=== PATIENT | male | born 2000 | race Two or more races ===

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

== ENCOUNTER 2025-07-31 13:38 | Emergency (ER) | payer SELFPAY ==
[~2025-07-31] VITALS: Ht 195.6 cm; Wt 55.0 kg
--- NOTE | 2025-07-31 13:53 | ECG ---
[facility] Test Date: 2025-07-31 Test Time: 13:46:04 Pat Name: TONI REBOLLEDO Department: Room: Gender: M Writer Technical Publications: ARABELLA : 2000 Requested By: JOSIAH KUMARI Order Number: [id number] Reading MD: Terry Schaffer Measurements Intervals Ramsay Rate: 56 P: 68 MD: 108 QRS: 87 QRSD: 96 T: 64 QT: 418 QTc: 404 Interpretive Statements Sinus rhythm Short MD interval ST elev, probable normal early repol pattern Baseline wander in lead(s) V4 Electronically Signed On 08-01-2025 13:55:46 PST by Terry Schaffer Please click the below link to view image of tracing.
--- NOTE | 2025-07-31 14:45 | DVH ---
CHEST RADIOGRAPH Indication: sob Technique: Single frontal view of the chest was obtained Comparison: XR CHEST 1 VIEW on DOS: 07/27/25 FINDINGS: Lines and Tubes: None Lungs: No focal consolidation. Pleura: No effusion. No pneumothorax. Cardiomediastinal contours: Unremarkable Bones: No acute osseous abnormality. IMPRESSION: 1. No acute cardiopulmonary disease.
[2025-07-31 14:56] LABS: Hematocrit 46.9 % (41.0-53.0); Hemoglobin 16.5 g/dL (13.5-17.5); Mean Corpuscular Hemoglobin 32.2 pg (28.0-32.0); Mean Corpuscular Volume 91.9 fL (80.0-100.0); Nucleated Red Blood Cells % 0.1 %
[2025-07-31 14:59] LABS: Chloride 103 mmol/L (98-107); Potassium 4.2 mmol/L (3.5-5.1); Sodium 144 mmol/L (136-145)
[2025-07-31 15:00] LABS: Anion Gap 10 (5-15); Carbon Dioxide 31 mmol/L (20-31)
[2025-07-31 15:01] LABS: Calcium 9.8 mg/dL (8.7-10.4)
[2025-07-31 15:06] LABS: BUN/Creatinine Ratio 15.8 (10.0-20.0); Blood Urea Nitrogen 18 mg/dL (9-23)
[2025-07-31 15:09] LABS: Glucose 72 mg/dL (74-106)
--- NOTE | 2025-07-31 16:13 | ED.PDOC ---
SOB-HPI HPI Comments 25 year old male presents to the ED with a chief complaint of shortness of breath onset 4 days. Patient states he has been experiencing shortness of breath as well as palpitations, chest discomfort, described as a burning sensation for the past 4 days. This morning he noticed symptoms worsened, was also experiencing dizziness, confusion, came to ED. He states he quit smoking about 2 weeks ago, currently feels anxious. Denies fever, chills, cough, cold, congestion, headache, nausea, vomiting, diarrhea, dysuria, hematuria, sore throat. No other symptoms or modifying factors present at this time. Chief Complaint: Shortness of Breath Time Seen by MD: 15:40 Primary Care Provider: [facility] Reviewed notes: Medications, Allergies Information Source: Patient Mode of Arrival: Ambulatory Severity: Moderate Timing: Days Duration: Since onset Context: At Rest PE Risk Factors: None History of: None Prehospital treatment: None Modifying Factors: Nothing Quality: Burning Radiation: No Radiation Location: Substernal Past Medical History PAST MEDICAL HISTORY: Denies Surgical History: Denies all surgeries Family History Family History: Reviewed,noncontributory to illness, No family hx of Cancer, No family hx of DM, No family hx of Heart mariza, No family hx of HTN, No family hx ofKidney mariza, No family hx of Liver mariza, No family hx of Lung mariza, No family hx of Stroke Social History Alcohol: Denies ETOH Use Lives In: Home Constitutional: denies: chills, diaphoresis, fatigue, fever, malaise, sweats, weakness, others EENTM: denies: blurred vision, double vision, ear bleeding, ear discharge, ear drainage, ear pain, ear ringing, eye pain, eye redness, hearing loss, mouth pain, mouth swelling, nasal discharge, nose bleeding, nose congestion, nose pain, photophobia, tearing, throat pain, throat swelling, voice changes, others Respiratory: reports: shortness of breath; denies: cough, hemoptysis, orthopnea, SOB at rest, SOB with excertion, stridor, wheezing, others Cardiovascular: reports: chest pain, palpitations; denies: dizzy spells, diaphoresis, Dyspnea on exertion, edema, irregular heart beat, left arm pain, lightheadedness, PND, syncope, others Gastrointestinal: denies: abdomen distended, abdominal pain, blood streaked bowels, constipated, diarrhea, dysphagia, difficulty swallowing, hematemesis, melena, nausea, poor appetite, poor fluid intake, rectal bleeding, rectal pain, vomiting, others Genitourinary: denies: burning, dysuria, flank pain, frequency, hematuria, incontinence, penile discharge, penile sore, pain, testicle pain, testicle swelling, urgency, others Neurological: denies: dizziness, fainting, headache, left sided numbness, left sided weakness, numbness, paresthesia, pre-existing deficit, right sided numbness, right sided weakness, seizure, speech problems, tingling, tremors, w eakness, others Musculoskeletal: denies: back pain, gout, joint pain, joint swelling, muscle pain, muscle stiffness, neck pain, others Integumetry: denies: bruises, change in color, change in hair/nails, dryness, laceration, lesions, lumps, rash, wounds, others Allergic/Immunocompromised: denies: Difficulty Healing, Frequent Infections, Hives, Itching, others Hematologic/Lymphatic: denies: anemia, blood clots, easy bleeding, easy bruising, swollen glands, others Endocrine: denies: excessive hunger, excessive sweating, excessive thirst, excessive urination, flushing, intolerance to cold, intolerance to heat, unexplained weight gain, unexplained weight loss, others Psychiatric: reports: anxiety; denies: bipolar disorder, depression, hopeless, panic disorder, schizophrenia, sleepless, suicidal, others All Other Systems: Reviewed and Negative Physical Exam General Appearance: Normal HEENT: Normal ENT Inspection, Pharynx Normal, TMs Normal Neck: Full Range of Motion, Non-Tender, Normal, Normal Inspection Respiratory: Chest Non-Tender, Lungs Clear, No Accessory Muscle Use, No Respiratory Distress, Normal Breath Sounds Cardiovascular: No Edema, No JVD, No Murmur, No Gallop, Normal Peripheral Pulses, Regular Rate/Rhythm Breast Exam: Deferred Gastrointestinal: No Organomegaly, Non Tender, No Pulsatile Mass, Normal Bowel Sounds, Soft Genitalia: Deferred Pelvic: Deferred Rectal: Deferred Extremities: No calf tenderness, Normal capillary refill, Normal inspection, Normal range of motion, Non-tender, No pedal edema Musculoskeletal : Apperance: Normal Neurologic: Alert, bench assembler electrical II-XII nml as Tested, No Motor Deficits, Normal Affect, Normal Mood, No Sensory Deficits Cerebellar Function: Normal Reflexes: Normal Skin: Dry, Normal Color, Warm Lymphatic: No Adenopathy EKG EKG : Pulse Rate (adult): 56 Cardiac Rhythm: NSR Was a procedure done? Was a procedure done?: No Differential Dx Differential Diagnosis: Asthma, Bronchitis, COPD, Panic Attack, Pneumonia X-Ray, Labs, Meds, VS Vital Signs Date Time Temp Pulse Resp B/P (MAP) Pulse Ox O2 Delivery O2 Flow Rate FiO2 07/31/25 16:13 56 07/31/25 15:32 61 18 120/85 (97) 61 07/31/25 13:46 56 07/31/25 13:43 97.9 66 18 124/85 98 97.9 Lab Test 07/31/25 15:20 07/31/25 14:26 Range/Units Troponin I High Sensitivity < 3 L < 3 L </=54 ng/L White Blood Count 4.6 4.4-10.8 10^3/uL Red Blood Count 5.11 4.5-5.90 10^6/uL Hemoglobin 16.5 13.5-17.5 g/dL Hematocrit 46.9 41.0-53.0 % Mean Corpuscular Volume 91.9 80.0-100.0 fL Mean Corpuscular Hemoglobin 32.2 H 28.0-32.0 pg Mean Corpuscular Hemoglobin Concent 35.1 32.0-36.0 g/dL Red Cell Distribution Width 12.8 11.8-14.3 % Platelet Count 245 140-450 10^3/uL Mean Platelet Volume 9.5 6.9-10.8 fL Neutrophils (%) (Auto) 51.6 37.0-80.0 % Lymphocytes (%) (Auto) 37.6 10.0-50.0 % Monocytes (%) (Auto) 9.3 0.0-12.0 % Eosinophils (%) (Auto) 1.1 0.0-7.0 % Basophils (%) (Auto) 0.4 0.0-2.0 % Neutrophils # (Auto) 2.4 1.6-8.6 10 ^3/uL Lymphocytes # (Auto) 1.7 0.4-5.4 10 ^3/uL Monocytes # (Auto) 0.4 0-1.3 10 ^3/uL Eosinophils # (Auto) 0.1 0-0.8 10 ^3/uL Basophils # (Auto) 0 0-0.2 10 ^3/uL Nucleated Red Blood Cells 0.1 % Sodium Level 144 136-145 mmol/L Potassium Level 4.2 3.5-5.1 mmol/L Chloride Level 103 98-107 mmol/L Carbon Dioxide Level 31 20-31 mmol/L Anion Gap 10 5-15 Blood Urea Nitrogen 18 9-23 mg/dL Creatinine 1.14 0.700-1.30 mg/dL Glomerular Filtration Rate Calc 92 >90 mL/min BUN/Creatinine Ratio 15.8 10.0-20.0 Serum Glucose 72 L 74-106 mg/dL Calcium Level 9.8 8.7-10.4 mg/dL Time of 1ST Reevaluation: 16:10 Reevaluation 1ST: Unchanged Patient Education/Counseling: Diagnosis, Treatment, Prognosis Family Education/Counseling: No Family Present SEPSIS Sepsis Screen Date sepsis recognized/suspect: Jul 31, 2025 Time Sepsis recognized/suspect: 1344 Recent Procedure: No On Antibiotic Therapy: No Respiratory Rate >20: No Heart Rate >90: No Temp<36 C (96.8 F) or >38.3 C: No SBP <90 or MAP <65 mmHG: No New Acute Mental Status Change: No Is the patient on CPAP, BIPAP,: No Physician Orders Chest Portable (07/31/25 14:10) Troponin-I Hs (07/31/25 17:10) Electrocardigram (07/31/25 15:10) Electrocardigram (07/31/25 17:10) Alum & Mag Hydrox-Simethicone (Maalox Pl (07/31/25 16:45) Dicyclomine Capsule (Bentyl Capsule) (07/31/25 16:45) Acetaminophen Tablet (Tylenol Tablet) (07/31/25 16:45) Vital Signs Date Time Temp Pulse Resp B/P (MAP) Pulse Ox O2 Delivery O2 Flow Rate FiO2 07/31/25 16:13 56 07/31/25 15:32 61 18 120/85 (97) 61 07/31/25 13:46 56 07/31/25 13:43 97.9 66 18 124/85 98 97.9 Laboratory Tests Test 07/31/25 14:26 White Blood Count 4.6 10^3/uL (4.4-10.8) Departure 1 Departure Time of Disposition: 16:48 (Patient's workup is benign. Patient likely with viral syndrome. We will discharge patient home with outpatient follow up) Impression: Primary Impression: Acute viral syndrome Disposition: HOME / SELF CARE / HOMELESS Condition: Stable Additional Instructions: You presented today with chest pain. Your workup today was benign including labs, troponin, EKG, chest x-ray. Your pain may be from musculoskeletal strain, acid reflux, anxiety, or many other factors. You likely have a viral illness. It is important to stay well rested and well hydrated. You can take Tylenol and Motrin as needed for pain and fever. For a sore throat you can drink warm tea with honey. You can take [id number] pseudoephedrine for nasal congestion. He should follow up with your regular doctor within 1 week to ensure you are doing better. If your symptoms worsen or you have any other concerns please return to the emergency room. Discharged With: Self Critical Care Note Critical Care Time?: No Stability Stability form required: No Heart Score Heart Score: Heart Score Response (Comments) Value History N/A 0 EKG N/A 0 Age N/A 0 Risk Factors N/A 0 Troponin N/A 0 Total 0 I personally scribed for JOSIAH KUMARI MD ([email or web address]) on 07/31/25 at 16:13. Electronically submitted by Iman Laboy ([email or web address]). JOSIAH KMUARI MD Jul 31, 2025 16:13
[2025-07-31] MEDS: DICYCLOMINE HCL 10 MG CAP PO ONE (17:03)
[2025-07-31] MEDS: MAALOX PLUS or MAALOX 30 ML PO ONE (17:03)
[2025-07-31] MEDS: METOCLOPRAMIDE HCL 10 MG TAB PO ONE (17:04)
[2025-07-31] MEDS: ACETAMINOPHEN 325 MG TAB PO ONE (17:04)
[2025-07-31 17:21] VITALS: BP 127/78; PULSE 58; RESP 16; TEMP 98.7; O2SAT 100
== END 2025-07-31 17:25 | disposition home or self-care (01) ==
LOC: ER 13:38
DX: B34.9 Viral infection, unspecified (principal)
CPT/HCPCS: 36415; 71045; 80048; 84484; 85025; 93005; 99285; J0500; J8597